=== PATIENT | female | born 1950 | race Caucasian/White ===

== ENCOUNTER → 2022-08-08 | Day surgery (SDC) | payer MEDICARE, BC ==
[2022-07-29 11:31] LABS: BASOPHILS % (AUTO) 0.3 % (0-1); EOSINOPHILS # (AUTO) 0.1 X10'3 (0-0.9); EOSINOPHILS % (AUTO) 1.1 % (0-6); LYMPHOCYTES # (AUTO) 1.6 X10'3 (1.1-4.8); LYMPHOCYTES % (AUTO) 24.9 % (21-51); MEAN CORPUSCULAR HEMOGLOBIN 31.3 PG (27.0-31.0); MEAN CORPUSCULAR HGB CONC 33.1 g/dL (33.0-36.5); MEAN CORPUSCULAR VOLUME 94.5 FL (78-98); MEAN PLATELET VOLUME 8.4 FL (7.4-10.4); MONOCYTES # (AUTO) 0.4 X10'3 (0-0.9); MONOCYTES % (AUTO) 6.7 % (2-12); NEUTROPHILS # (AUTO) 4.2 X10'3 (1.8-7.7); PRE OP HEMATOCRIT 44.2 % (35.0-45.0); PRE OP HEMOGLOBIN 14.7 g/dL (12.0-16.0); PRE OP PLATELET COUNT 214 X10'3 (140-440); RED BLOOD COUNT 4.68 X10'6 (4.20-5.60); RED CELL DISTRIBUTION WIDTH 13.4 % (11.5-14.5)
[2022-07-29 11:32] LABS: CLARITY,URINE CLEAR (Clear); COLOR,URINE STRAW (Yellow); GLUCOSE, URINE NEGATIVE (Neg); KETONES,URINE NEGATIVE (Neg); LEUKOCYTE ESTERASE ,URINE NEGATIVE (Neg); NITRITES, URINE NEGATIVE (Neg); OCCULT BLOOD,URINE NEGATIVE (Neg); PROTEIN,URINE NEGATIVE (Neg); UROBILINOGEN,URINE 0.2 E.U/dL (0.2-1.0)
[2022-07-29 11:33] LABS: UA COLLECTION TYPE NON-SPECIFIED
[2022-07-29 11:42] LABS: ALBUMIN 3.9 G/DL (3.4-5.0); ALBUMIN/GLOBULIN RATIO 1.5 (1.1-1.5); ALKALINE PHOSPHATASE 101 IU/L (46-116); BLOOD UREA NITROGEN 15 MG/DL (7-18); BUN/CREATININE RATIO 19.5 (6.6-38.0); CALCIUM 9.6 MG/DL (8.5-10.1); CHLORIDE 103 MMOL/L (99-107); CREATININE 0.77 MG/DL (0.40-0.90); PRE OP ALT 30 U/L (30-65); PRE OP ANION GAP 4 (8-16); PRE OP AST 21 U/L (10-37); PRE OP BILIRUB, TOTAL 0.5 MG/DL (0.0-1.0); PRE OP GLUCOSE 86 MG/DL (70-104); PRE OP POTASSIUM 4.3 MMOL/L (3.4-5.1); PRE OP SODIUM 141 MMOL/L (135-145); TOTAL CARBON DIOXIDE 34.4 MMOL/L (24-32); TOTAL PROTEIN 6.5 G/DL (6.4-8.2); eGFR 74 ML/MIN
[2022-08-08] VITALS (22 sets, daily range): BP systolic 78–112; BP diastolic 47–77
[~2022-08-08] VITALS: Ht 177.8 cm; Wt 62.9 kg
[~2022-08-08] MED LIST: BUPIVAcaine 0.5% inj/PF 0 ML ONE; CALC-212 PO; CHOL50004 PO; MAGN400T39 PO; MULT-1141 PO; ROPIVAcaine 0.5% (5mg/ml) 30ml vial ONE; bacitracin 15gm ointment TP ONE; ceFAZolin inj. 3,000 MG in normal saline 100ml IV soln 100 ML IV ONE; ceFAZolin/D5W- 1GM premix 50 ML IV ONE; cloNIDine hcl/PF 100mcg/ml inj ONE; dexamethasone sod phosphate 4mg/ml inj. ONE; famotidine 20mg tablet PO ONE; fentaNYL/PF 50MCG/1 ML 2ML syringe ONE; meperidine/PF 25mg/ml syringe IV PRN; midazolam 1 mg/ML 2ml injection ONE; morphine 2 MG/ML inj. syringe IV PRN; morphine 4 MG/ML inj SYRINge IV PRN; ondansetron 4mg rapidly disintigrating tab PO ONE; ondansetron/PF 4mg/2ml inj IV PRN; ondansetron/PF 4mg/2ml inj ONE; proCHLORperazine 10 MG/2 ml inj IV PRN; propofol inj 20 ML IV ONE; ringers solution, lacted 1,000 ML IV SCH; sevoflurane 250ml liquid IH ONE
--- NOTE | 2022-08-08 10:59 | NUR ---
Received from OR via , accompanied by Anesthesiologist JULIANO AND OR NURSE and report given by Anesthesiolgist. PT IS DROWSY YET ABLE TO FOLLOW VERBAL COMMANDS. LT SURGICAL FOOT WITH GAUZE AND MAURY WRAP; CDI. 18G TO LT WRIST. PT C/O OF PAIN TO FOOT AT A PAIN LEVEL 4; 12.5 MG OF DEMEROL GIVEN. VSS Addendum: 08/08/22 at 1324 by Janel Bee RN Amended: Links added.
--- NOTE | 2022-08-08 13:35 | NUR ---
PT DENIES PAIN OR DISCOMFORT. TOLERATING ICE CHIPS. VSS. SHE APPEARS VERY SLEEPY. GETTING PT READY FOR DISCHARGE; NURSE ASSESSED PT NOT WAKING UP AND STILL QUITE DROWSY. PT C/O OF FEELING "OUT OF IT AND NAUSEAS". UNABLE TO STAY AWAKE WHILE IN WHEELCHAIR. STAFF PLACED PT BACK TO [facility]. GAVE ORAL ZOFRAN IV WAS D/C. NURSE CONTACTED JULIANO TO ASSESS PT. Addendum: 08/08/22 at 1342 by Janel Bee RN Amended: Links added.
--- NOTE | 2022-08-08 13:42 | NUR ---
JULIANO ASSESSED PT AND STATES THAT SHE IS JUST NIAVE TO SEDATION AND PAIN MEDS AND SHOULD BE FINE TO GO HOME AFTER A BIT MORE OBSERVATION TIME. HAS BEEN INFORMED OF SITUATION AND IS AT BEDSIDE. NURSE CONTINUES TO MONITOR. VSS Addendum: 08/08/22 at 1344 by Janel Bee RN Amended: Links added.
--- NOTE | 2022-08-08 15:09 | NUR ---
ABLE TO SAFELY AMBULATE AND TRANSFER HELP FROM STAFF. IV TAKEN OUT WITHOUT ANY COMPLICATIONS. ALL DISCHARGE INSTRUCTIONS COVERED WITH PATIENT AND ALL QUESTIONS ANSWERED. PATIENT NEEDED TO GET BACK ON GURNEY AND CONNECTED TO MONITOR FOR INABILITY TO WAKE UP TO D/C EXPECTATION. PT SLOWLY WOKE UP AND ABLE TO TRANSFER TO COMMODE AND VOID AND TOLERATE CRACKERS, SIPS OF WATER. PATIENT TAKEN OUT VIA WHEELCHAIR TO PERSONAL VEHICLE WHERE ASSISTED TRANSFER TO CAR AND DROVE PATIENT HOME. Addendum: 08/08/22 at 1516 by Janel Bee RN Amended: Links added.
== END | disposition home or self-care (01) ==
LOC: PAS 06:49
PROVIDERS: ATTEND Podiatrist Foot & Ankle Surgery
DX: M20.12 Hallux valgus (acquired), left foot (principal); M20.42 Other hammer toe(s) (acquired), left foot; M24.575 Contracture, left foot; M20.22 Hallux rigidus, left foot; M25.375 Other instability, left foot; M19.072 Primary osteoarthritis, left ankle and foot; G89.18 Other acute postprocedural pain; Z88.2 Allergy status to sulfonamides; Z72.89 Other problems related to lifestyle; Z87.891 Personal history of nicotine dependence; Z90.49 Acquired absence of other specified parts of digestive tract; Z79.899 Other long term (current) drug therapy
CPT/HCPCS: 28270; 28285; 28750; 36415; 64445; 64447; 80053; 81003; 82948; 85025; 93005; A6223; C1713; J0690; J0735; J1100; J2175; J2250; J2405; J2704; J2795; J3010; J3490; J7030; J7120; Z7506; Z7508; Z7512; A4215; A4618; A6449; A7000; S0020